=== PATIENT | female | born 1995 | race Two or more races ===

== ENCOUNTER → 2017-10-06 08:48 | Outpatient (CLI) | payer OTHER ==
[~2017-10-06] VITALS: Ht 152.4 cm; Wt 46.3 kg
== END | disposition home or self-care (01) ==
LOC: PPHC 08:48
DX: N60.11 Diffuse cystic mastopathy of right breast (principal); M94.0 Chondrocostal junction syndrome [Tietze]

== ENCOUNTER 2017-10-06 12:20 | Outpatient (CLI) | payer OTHER | END 2017-10-06 14:26 | disposition home or self-care (01) | LOC: SONOGRAMA 12:20 | DX: N60.12 Diffuse cystic mastopathy of left breast (principal); N60.11 Diffuse cystic mastopathy of right breast ==

== ENCOUNTER → 2017-10-15 15:25 | Outpatient (CLI) | payer OTHER ==
[~2017-10-15] VITALS: Ht 152.4 cm; Wt 46.3 kg
[~2017-10-15 15:25] MED LIST: ANTICONCEPTIVOS
== END | disposition home or self-care (01) ==
LOC: PPHC 15:25
DX: N60.11 Diffuse cystic mastopathy of right breast (principal); M94.0 Chondrocostal junction syndrome [Tietze]

== ENCOUNTER 2018-02-27 12:35 | Emergency (ER) | payer OTHER ==
[~2018-02-27] VITALS: Ht 154.9 cm; Wt 46.3 kg
== END 2018-02-27 15:26 | disposition home or self-care (01) ==
LOC: ER 12:35
DX: N83.292 Other ovarian cyst, left side (principal)

== ENCOUNTER 2022-04-15 12:37 | Outpatient (CLI) | payer OTHER | END 2022-04-15 12:50 | disposition home or self-care (01) | LOC: RAD 12:37 | PROVIDERS: ATTEND Plastic Surgery | DX: Z01.811 Encounter for preprocedural respiratory examination (principal); R07.9 Chest pain, unspecified ==